=== PATIENT | male | born 2000 | race Native Hawaiian/Other Pacific Islander ===

== ENCOUNTER 2020-03-17 15:41 | Outpatient (CLI) | payer OTHER | END 2020-03-17 20:34 | disposition home or self-care (01) | LOC: LAB 15:41 | DX: Z20.828 Contact with and (suspected) exposure to other viral communicable diseases (principal) | CPT/HCPCS: 87635; U0003 ==

== ENCOUNTER 2020-06-12 16:08 | Outpatient (CLI) | payer BC, OTHER | END 2020-06-12 19:25 | disposition home or self-care (01) | LOC: LAB 16:08 | PROVIDERS: ATTEND Internal Medicine Endocrinology, Diabetes & Metabolism | DX: U07.1 COVID-19 (principal); Z11.59 Encounter for screening for other viral diseases | CPT/HCPCS: 87635; G2023; U0003 ==